=== PATIENT | male | born 1950 ===

== ENCOUNTER 2017-04-03 12:36 | Outpatient (CLI) | payer OTHER ==
--- NOTE | 2017-04-03 15:27 | XRay Report ---
Left hip 2 views: History: Left hip pain. Findings: Severe arthritic changes at the inferior aspect of the hip joint. No fracture dislocation or soft tissue calcification. Impression: Arthritic changes inferior aspect left hip.
== END 2017-04-03 12:37 | disposition home or self-care (01) ==
LOC: SPVIMAG 12:36
PROVIDERS: ATTEND Family Medicine
DX: M16.12 Unilateral primary osteoarthritis, left hip (principal)